=== PATIENT | female | born 1970 | race Caucasian/White ===

== ENCOUNTER 2022-05-28 14:03 | Outpatient (CLI) | payer BC, SELFPAY ==
[2022-05-28 17:33] LABS: Chloride* 101 mmol/L (96-114); Potassium* 3.9 mmol/L (3.6-5.1); Sodium* 137 mmol/L (135-149)
[2022-05-28 17:35] LABS: Cholesterol* 224 mg/dL (90-199)
[2022-05-28 17:36] LABS: Carbon Dioxide* 26 mmol/L (20-32); Glucose* 89 mg/dL (60-115); Triglycerides* 78 mg/dL (40-149)
[2022-05-28 17:37] LABS: HDL Cholesterol* 67 mg/dL (>=50); LDL Cholesterol Calculated 141 mg/dL (<100)
[2022-05-28 17:56] LABS: C Reactive Protein* < 0.5 mg/dL (0.5-1.0)
[2022-05-28 18:24] LABS: Vitamin B12* 956 pg/mL (243-894)
== END 2022-05-28 14:04 | disposition home or self-care (01) ==
PROVIDERS: PCP Family Medicine; Visit Provider Obstetrics & Gynecology
DX: Z01.419 Encounter for gynecological examination (general) (routine) without abnormal findings (principal); Z13.6 Encounter for screening for cardiovascular disorders; Z13.1 Encounter for screening for diabetes mellitus
CPT/HCPCS: 80051; 80061; 82607; 82947; 86140

== ENCOUNTER 2022-09-01 14:00 | Outpatient (RCR) | payer BC, SELFPAY | END 2022-09-01 15:37 | disposition home or self-care (01) | PROVIDERS: PCP Family Medicine; Visit Provider Surgery | DX: I89.0 Lymphedema, not elsewhere classified (principal); Z51.89 Encounter for other specified aftercare | CPT/HCPCS: 97530 ==

== ENCOUNTER 2023-05-30 09:26 | Outpatient (CLI) | payer BC, SELFPAY | END 2023-05-30 09:27 | disposition home or self-care (01) | PROVIDERS: PCP Family Medicine; Visit Provider Physician Assistant | DX: Z01.419 Encounter for gynecological examination (general) (routine) without abnormal findings (principal); Z13.6 Encounter for screening for cardiovascular disorders; Z13.1 Encounter for screening for diabetes mellitus | CPT/HCPCS: 80061; 82947 ==